=== PATIENT | female | born 1990 | race Caucasian/White ===

== ENCOUNTER 2020-02-25 12:39 | Outpatient (CLI) | payer OTHER ==
--- NOTE | 2020-02-25 13:43 | CT ---
CT neck soft tissues with contrast: 02/25/2020 HISTORY: 29-year-old female with left neck mass. FINDINGS: Just deep to the external skin marker, there is a well-circumscribed, approximately 2 x 1.2 x 3.5 cm mass that enhances homogeneously, very similar in enhancement to a large caliber superficial left anterior neck pain. The contralateral right neck also has similar caliber anterior superficial veins. No major pathology identified involving the parapharyngeal, retropharyngeal, carotid, parotid, subman dibular, posterior cervical, or food supervisor spaces. 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
== END 2020-02-25 12:40 | disposition home or self-care (01) ==
LOC: SCSCT 12:39
PROVIDERS: ATTEND Otolaryngology Otolaryngic Allergy
DX: R22.1 Localized swelling, mass and lump, neck (principal)
CPT/HCPCS: 70491